=== PATIENT | male | born 1935 | race Caucasian/White ===

== ENCOUNTER 2022-02-03 20:58 | Emergency (ER) | payer OTHER ==
[~2022-02-03] VITALS: Ht 177.8 cm; Wt 87.7 kg
--- NOTE | 2022-02-03 21:30 | NUR ---
Patient walked with assistance to bathroom. Daughter at bedside. Patient able to follow directions. NAD noted.
[2022-02-03] MEDS ORDERED: ATOR40TA PO (21:36)
[2022-02-03] MEDS ORDERED: LOSA25TA27 PO (21:36)
[2022-02-03] MEDS ORDERED: AMLO2.5T4 PO (21:36)
[2022-02-03] MEDS ORDERED: SERT25TA PO (21:36)
[2022-02-03] MEDS ORDERED: NITR0.4T SL (21:36)
[2022-02-03] MEDS ORDERED: ASPI81TA31 PO (21:36)
[2022-02-03] MEDS ORDERED: CLOP75TA15 PO (21:36)
[2022-02-03 22:04] LABS: HEMATOCRIT 43.4 % (36.7-47.1); MEAN CORPUSCULAR VOLUME 96.3 fL (73.0-96.2); PLATELET COUNT (AUTO) 152 K/uL (152-348)
[2022-02-03 22:33] LABS: CREATININE 1.2 mg/dL (0.6-1.3); POTASSIUM 4.2 mmol/L (3.5-5.1)
[2022-02-03] MEDS ORDERED: IV NS 1000 ML 1,000 ML IV ONE (22:45)
[2022-02-03 23:06] LABS: *BILIRUBIN,URIN NEGATIVE (NEGATIVE); *CLARITY,URINE CLEAR (CLEAR); *COLOR,URINE YELLOW (YELLOW); *KETONES,URINE 2+ (NEGATIVE); *UROBILINOGEN,URINE 0.2 E.U./dl (NORMAL); LEUKOCYTE ESTERASE ,URINE NEGATIVE (NEGATIVE); NITRITE, URINE NEGATIVE (NEGATIVE); PH,URINE 5.5 (5.0-8.0); UGLUCOSE NEGATIVE (NEGATIVE)
[2022-02-03 23:08] LABS: *BLOOD, URINE TRACE (NEGATIVE)
[2022-02-03 23:31] LABS: MAGNESIUM 2.2 mg/dL (1.8-2.4)
[2022-02-03 23:47] LABS: RBC,URINE 0-3 /HPF (0-3); WBC,URINE 0-3 /HPF (0-3)
[2022-02-03 23:48] LABS: BACTERIA,URINE NONE SEEN /HPF (NONE SEEN); SQUAMOUS EPITHELIAL CELL,UR FEW /HPF (NONE SEEN)
--- NOTE | 2022-02-04 00:25 | NUR ---
Patient taken to CT Scan
[2022-02-04] MEDS ORDERED: BISA-79 PO (00:52)
[2022-02-04] MEDS ORDERED: BISA10SU61 RC (00:52)
[2022-02-04] MEDS ORDERED: DOCU250C14 PO (00:52)
[2022-02-04] MEDS ORDERED: MAGNESIUM HYDROXIDE 30 ML LIQUID UDC PO ONE (01:00)
[2022-02-04] MEDS ORDERED: BISACODYL 5 MG TABLET.DR PO ONE ×2 (01:00→01:06)
[2022-02-04] MEDS ORDERED: MAGNESIUM HYDROXIDE 30 ML LIQUID UDC ONE (01:06)
--- NOTE | 2022-02-04 01:25 | NUR ---
Patient discharged to home in stable condition. A/O x2. NAD noted. Left with daughter and customer care specialist. All belongings with daughter. Written and verbal after care instructions given. Patient verbalizes understanding of instructions. Stressed follow up or return to ER for worsening s/s.
[2022-02-04 01:55] VITALS: BP 145/74
== END 2022-02-04 01:25 | disposition home or self-care (01) ==
LOC: ER 21:12
DX: K59.00 Constipation, unspecified (principal); D72.828 Other elevated white blood cell count; E78.5 Hyperlipidemia, unspecified; F32.9 Major depressive disorder, single episode, unspecified; I65.02 Occlusion and stenosis of left vertebral artery; F03.90 Unspecified dementia, unspecified severity, without behavioral disturbance, psychotic disturbance, mood disturbance, and anxiety; Z79.02 Long term (current) use of antithrombotics/antiplatelets; Z79.899 Other long term (current) drug therapy; I71.21 Aneurysm of the ascending aorta, without rupture; I25.10 Atherosclerotic heart disease of native coronary artery without angina pectoris; G47.30 Sleep apnea, unspecified
CPT/HCPCS: 99284; 96360; 80048; 81001; 82607; 83735; 85025; 87086; 36415 ×2; 74176; 84484; J7040; C1758